=== PATIENT | male | born 1955 | race Caucasian/White ===

== ENCOUNTER 2017-04-11 15:33 | Emergency (ER) | payer OTHER ==
[~2017-04-11] VITALS: Ht 182.9 cm; Wt 98.0 kg
[~2017-04-11 15:33] MED LIST: BUPR150XL PO; CHLO10CA2 PO; FOLI1TAB4 PO; METO25TA3 PO; NEUR300C PO; REST15CA PO; VITA100T2 PO
[2017-04-11 15:45] VITALS: BP 119/76; PULSE 78; RESP 22; TEMP 98.2; O2SAT 97
--- NOTE | 2017-04-11 15:48 | PD ---
HPI Chief Complaint: Alcohol/Drug Intoxication Time Seen by Provider: 15:48 Travel History International Travel<30 days: No Contact w/Intl Traveler<30days: No Traveled to known affect area: No History of Present Illness HPI 61-year-old male presents to the emergency department for evaluation under a Terrell act. Patient has long-standing history of alcohol dependence. He states that he recently returned from his mother's . He wanted to relax so he began drinking wine. This caused an argument with his so he began to drink more wine and vodka today. His came angry and contacted police. This resulted in the patient being brought to the emergency department. Patient denies any suicidal homicidal ideations. States that he has taken his medication this morning but as prescribed. He denies any other symptoms at this time. [facility] Past Medical History Asthma: No Blood Disorders: No Anxiety: Yes Depression: Yes Heart Rhythm Problems: Yes (ARRYTHMIAS) Cancer: No Cardiovascular Problems: Yes High Cholesterol: Yes Chest Pain: No Congestive Heart Failure: No COPD: No Diabetes: Yes (PRE-DIABETIC) Diminished Hearing: No Endocrine: No Gastrointestinal Disorders: Yes Genitourinary: Yes Hypertension: Yes Immune Disorder: No Musculoskeletal: No Neurologic: No Psychiatric: Yes Reproductive: No Respiratory: No Sleep Apnea: No Thyroid Disease: No Social History Alcohol Use: Yes (quit nov) Tobacco Use: No Substance Use: No Allergies-Medications (Allergen,Severity, Reaction): Coded Allergies: No Known Allergies (Unverified , 04/11/17) Reported Meds & Prescriptions Reported Meds & Active Scripts Active Metoprolol Tartrate 25 Mg Tab 50 Mg PO Q12HR Restoril (Temazepam) 15 Mg Cap 15 Mg PO HS PRN Neurontin (Gabapentin) 300 Mg Cap 300 Mg PO TID Reported B12 (Cyanocobalamin) 1,000 Mcg Tab 500 Mcg PO DAILY Folic Acid 1 Mg Tablet 3 Mg PO DAILY Vitamin B-1 (Thiamine HCl) 100 Mg Tab 100 Mg PO DAILY Review of Systems ROS Limitations: Intoxication Except as stated in HPI: all other systems reviewed are Neg Physical Exam Exam Limitations: Intoxication Narrative GENERAL: Well-nourished, clinically intoxicated male, with slurred speech, strong smell of alcohol on his breath, but in no acute distress. SKIN: Warm and dry. HEAD: Normocephalic. Atraumatic EYES: No scleral icterus. No injection or drainage. NECK: Supple, trachea midline. No JVD or lymphadenopathy. CARDIOVASCULAR: Regular rate and rhythm without murmurs, gallops, or rubs. RESPIRATORY: Breath sounds equal bilaterally. No accessory muscle use. GASTROINTESTINAL: Abdomen soft, non-tender, nondistended. MUSCULOSKELETAL: No cyanosis, or edema. BACK: Nontender without obvious deformity. No CVA tenderness. Data Data Last Documented VS Vital Signs Date Time Temp Pulse Resp B/P Pulse Ox O2 Delivery O2 Flow Rate FiO2 04/11/17 15:49 78 22 97 Room Air 04/11/17 15:49 98.2 119/76 MDM Medical Decision Making Medical Screen Exam Complete: Yes Emergency Medical Condition: Yes Medical Record Reviewed: Yes Differential Diagnosis Intoxication versus alcohol dependency versus substance abuse Narrative Course 61-year-old male presents to the emergency department under a Terrell act for evaluation. Patient is clinically intoxicated and admits to drinking a large amount of alcohol today. He appears otherwise without distress. I discussed the patient with my attending was also assessed the patient. Patient be observed until he is clinically sober at which time he'll be discharged home. 2200 patient is ambulatory with cane assistance. His white bedside. Patient will be discharged at this time. Diagnosis Primary Impression: Acute alcohol intoxication Qualified Code: F10.929 - Acute alcoholic intoxication with complication Referrals: [facility] (Out patient) Patient Instructions: Abuse of Alcohol (ED), General Instructions Additional Instructions: Consume alcohol in moderation Seek outpatient assistance in dealing with alcohol if it is a problem for you Follow-up with a primary care provider Return immediately with any acute worsening of symptoms Med/Other Pt SpecificInfo: No Change to Meds Disposition: 01 DISCHARGE HOME Condition: Stable Mayra Giraldo Apr 11, 2017 15:48
[2017-04-11 15:49] VITALS: BP 119/76; PULSE 78; RESP 22; TEMP 98.2; O2SAT 97
[2017-04-11] MEDS ORDERED: FOLI1TAB6 PO (15:55)
[2017-04-11] MEDS ORDERED: CYAN1TAB24 PO (15:55)
[2017-04-11] MEDS ORDERED: VITA100T54 PO (15:55)
--- NOTE | 2017-04-11 16:17 | PD ---
Data Data Last Documented VS Vital Signs Date Time Temp Pulse Resp B/P Pulse Ox O2 Delivery O2 Flow Rate FiO2 04/11/17 15:49 78 22 97 Room Air 04/11/17 15:49 98.2 119/76 MDM Supervised Visit with ASHER: Yes Narrative Course The history, exam, and medical decision-making in the associated mid-level provider note were completed with my assistance. I reviewed and agree with the findings presented. I attest that I had a [id number] encounter with the patient on the same day, and personally performed and documented my assessment and findings in the medical record. *My assessment and Findings: 61-year-old man, here for alcohol intoxication. Apparently was in an argument with his called the police. They brought her to her [place]. Patient endorses drinking vodka and wine. Denies overdose. He does state he took his regular dose of gabapentin this morning as well. No complaints. He' ll be observed for sobriety here in the ED and discharged when clinically sober. John Pichardo MD Apr 11, 2017 16:17
== END 2017-04-11 22:16 | disposition home or self-care (01) ==
LOC: NEPE 15:33
DX: F10.229 Alcohol dependence with intoxication, unspecified (principal)
CPT/HCPCS: 99281